=== PATIENT | male | born 1940 | race African-American/Black ===

== ENCOUNTER → 2016-12-14 | Outpatient (CLI) | payer MEDICARE, OTHER ==
[2016-12-14 09:42] LABS: Basophils # (auto) 0 uL; Basophils % (auto) 0.1 % (0.0-2.0); CONDITION Y; DEFINITIVE SEE PRINTOUT; Eosinophils # (auto) 0.1 uL; Eosinophils % (auto) 1.2 % (0.0-7.0); Hematocrit 39.7 % (41.0-53.0); Hemoglobin 12.5 g/dL (13.5-17.5); Lymphocytes # (auto) 2.2 uL; Lymphocytes % (auto) 38.6 % (10.0-50.0); Mean Corpuscular Hemoglobin 23.6 pg (28.0-32.0); Mean Corpuscular Hgb Conc. 31.4 g/dL (32.0-36.0); Mean Corpuscular Volume 75.2 fL (80.0-100.0); Mean Platelet Volume 10.1 fL (7.4-10.4); Monocytes # (auto) 0.4 uL; Monocytes % (auto) 6.7 % (0.0-12.0); Neutrophils # (auto) 3.1 uL; Neutrophils % (auto) 53.4 % (37.0-80.0); Platelet Count (auto) 178 10^3/uL (140-450); Red Cell Distribution Width 15.7 % (11.6-16.0); White Blood Cell 5.8 10^3/uL (4.4-10.8)
[2016-12-14 09:58] LABS: Albumin 3.7 g/dL (3.4-5.0); Bilirubin, Total 0.7 mg/dL (0.2-1.0); Calcium 9.3 mg/dL (8.5-10.1); Potassium 4.4 mmol/L (3.5-5.1); Total Protein 7.7 g/dL (6.4-8.2)
== END | disposition home or self-care (01) ==
LOC: LAB 09:21
PROVIDERS: ATTEND Internal Medicine
DX: K21.9 Gastro-esophageal reflux disease without esophagitis (principal); G62.9 Polyneuropathy, unspecified; I10 Essential (primary) hypertension; N40.0 Benign prostatic hyperplasia without lower urinary tract symptoms
CPT/HCPCS: 36415; 80053; 80061; 82607; 84153; 84439; 84443; 85025

== ENCOUNTER 2018-01-29 00:21 | Inpatient (IN) | payer OTHER ==
[~2018-01-29] VITALS: Ht 177.8 cm; Wt 66.7 kg
[2018-01-29] VITALS (7 sets, daily range): BP systolic 115–147; BP diastolic 88–114
[2018-01-29] MEDS ORDERED: NITROGLYCERIN 0.4 MG SL TAB SL PRN (01:15)
[2018-01-29] MEDS ORDERED: MORPHINE SULF INJ 2 MG/ML SYRINGE 1ML IV PRN ×2 (01:15)
[2018-01-29] MEDS ORDERED: TEMAZEPAM 15 MG CAP PO PRN (01:15)
[2018-01-29] MEDS ORDERED: ACETAMINOPHEN 500 MG TAB PO PRN (01:15)
[2018-01-29] MEDS ORDERED: ONDANSETRON HCL 4 MG/2 ML VIAL IV PRN (01:15)
[2018-01-29] MEDS ORDERED: HYDROcodone-ACET 5/325MG TAB PO PRN (01:15)
[2018-01-29] MEDS ORDERED: BENA10TA9 PO (03:40)
[2018-01-29] MEDS ORDERED: ATEN50TA PO (03:42)
[2018-01-29] MEDS ORDERED: CLON0.1T PO (03:42)
[2018-01-29] MEDS ORDERED: ASPI325T4 PO (03:42)
[2018-01-29] MEDS ORDERED: ENOXAPARIN SOD 60 MG/0.6 ML SYRINGE SC SCH (06:00)
[2018-01-29] MEDS: ENOXAPARIN SOD 60 MG/0.6 ML SYRINGE SC SCH ×2 (06:47→22:14)
[2018-01-29 08:03] LABS: Basophils # (auto) 0 uL; Eosinophils # (auto) 0 uL; Hemoglobin 10.9 g/dL (13.5-17.5); Mean Corpuscular Hemoglobin 22.7 pg (28.0-32.0); Platelet Count (auto) 131 10^3/uL (140-450); Red Blood Cells 4.81 10^6/uL (4.5-5.90)
[2018-01-29 08:06] LABS: Basophils % (auto) 0.6 % (0.0-2.0); Hematocrit 35.4 % (41.0-53.0); Lymphocytes # (auto) 1.9 uL; Mean Corpuscular Hgb Conc. 30.9 g/dL (32.0-36.0); Mean Corpuscular Volume 73.5 fL (80.0-100.0); Monocytes # (auto) 0.4 uL; Monocytes % (auto) 9.1 % (0.0-12.0); Neutrophils # (auto) 2.1 uL; Neutrophils % (auto) 47.3 % (37.0-80.0); Nucleated Red Blood Cells % 0.4 %; Red Cell Distribution Width 15.4 % (11.8-14.3); White Blood Cell 4.5 10^3/uL (4.4-10.8)
[2018-01-29 08:20] LABS: Albumin 3.1 g/dL (3.4-5.0); Calcium 8.4 mg/dL (8.5-10.1); Potassium 3.5 mmol/L (3.5-5.1)
[2018-01-29 08:21] LABS: Cholesterol 146 mg/dL (< 200); HDL Cholesterol 44 mg/dL (40-59); LDL Cholesterol 95 mg/dL (< 100); Triglycerides 55 mg/dL (< 150)
[2018-01-29 08:23] LABS: BUN/Creatinine Ratio 13.3
[2018-01-29 08:43] LABS: Bilirubin, Total 0.9 mg/dL (0.2-1.0); Total Protein 6.4 g/dL (6.4-8.2)
[2018-01-29 08:47] LABS: INR 1.04 (0.9-1.15); Partial Thromboplastin Time 31.9 sec (23.78-33.04); Prothrombin Time 11.1 sec (9.27-12.13)
[2018-01-29] MEDS: FUROSEMIDE 40 MG/4 ML VIAL IV SCH (10:38)
[2018-01-29] MEDS: METOPROLOL TARTRATE 25 MG TAB PO SCH ×2 (10:39→22:17)
[2018-01-29] MEDS: ASPirin-EC 81 mg tab PO SCH (10:39)
[2018-01-29] MEDS ORDERED: LISINOPRIL 20 MG TAB PO ONE (11:45)
[2018-01-29] MEDS ORDERED: POTASSIUM CHL 20 Meq TABLET PO ONE (12:30)
[2018-01-29] MEDS: ATORVASTATIN 20 MG TAB PO SCH (22:14)
[2018-01-30 05:00] VITALS: BP 150/108
[2018-01-30 05:38] LABS: Albumin 3.4 g/dL (3.4-5.0); BUN/Creatinine Ratio 15.1; Calcium 8.9 mg/dL (8.5-10.1); Potassium 4.2 mmol/L (3.5-5.1)
[2018-01-30 05:41] LABS: Bilirubin, Total 0.9 mg/dL (0.2-1.0); Total Protein 6.9 g/dL (6.4-8.2)
[2018-01-30 07:55] VITALS: BP 149/99
[2018-01-30 08:55] VITALS: BP 149/99
[2018-01-30] MEDS: POTASSIUM CHL 20 Meq TABLET PO SCH (09:47)
[2018-01-30] MEDS: ASPirin-EC 81 mg tab PO SCH (09:47)
[2018-01-30] MEDS: FUROSEMIDE 40 MG/4 ML VIAL IV SCH (09:47)
[2018-01-30] MEDS: METOPROLOL TARTRATE 25 MG TAB PO SCH ×2 (09:48→22:49)
[2018-01-30] MEDS: ENOXAPARIN SOD 60 MG/0.6 ML SYRINGE SC SCH (09:48)
[2018-01-30] MEDS ORDERED: LISINOPRIL 20 MG TAB PO SCH (10:00)
[2018-01-30 12:43] VITALS: BP 153/118
[2018-01-30] MEDS ORDERED: ENOXAPARIN SOD 60 MG/0.6 ML SYRINGE SC ONE (14:30)
[2018-01-30] MEDS: hydrALAZINE HCL 25 MG TAB PO SCH ×2 (14:41→22:48)
[2018-01-30 17:00] VITALS: BP 146/109
[2018-01-30] MEDS ORDERED: ACETAMINOPHEN 325 MG TAB PO PRN (17:45)
[2018-01-30 22:00] VITALS: BP 129/94
[2018-01-30] MEDS: ATORVASTATIN 20 MG TAB PO SCH (22:49)
[2018-01-31 04:49] VITALS: BP 115/75
[2018-01-31] MEDS: hydrALAZINE HCL 25 MG TAB PO SCH ×3 (06:31→22:08)
[2018-01-31 08:00] VITALS: BP 118/77
[2018-01-31] MEDS: ASPirin-EC 81 mg tab PO SCH (10:00)
[2018-01-31] MEDS ORDERED: LIDOCAINE 2% (LOCAL ANESTH.) PF 5ml SDV ONE (10:03)
[2018-01-31] MEDS ORDERED: IODIXANOL 320MG/ML 100ML BTL IV ONE (10:04)
[2018-01-31] MEDS ORDERED: VERAPAMIL 2.5MG/ML INJ 2ML VIAL IV ONE (10:11)
[2018-01-31] MEDS ORDERED: ANGIOMAX 250 MG VIAL IV ONE (10:11)
[2018-01-31] MEDS ORDERED: SODIUM CHL 0.9% 0 ML ONE (10:12)
[2018-01-31] MEDS ORDERED: fentaNYL CITRATE 100 MCG/2 ML VL ONE (10:12)
[2018-01-31] MEDS ORDERED: MIDAZOLAM HCL 1MG/1ML-2 ML VIAL ONE (10:12)
[2018-01-31] MEDS ORDERED: HEPARIN SODIUM (PORCINE) 5000 UNITS/ML 1ML VIAL ONE (10:32)
[2018-01-31 12:00] VITALS: BP 149/102
[2018-01-31] MEDS: FUROSEMIDE 40 MG/4 ML VIAL IV SCH (12:11)
[2018-01-31] MEDS: POTASSIUM CHL 20 Meq TABLET PO SCH (12:13)
[2018-01-31] MEDS: METOPROLOL TARTRATE 25 MG TAB PO SCH ×2 (12:13→22:07)
[2018-01-31 16:00] VITALS: BP 127/92
[2018-01-31 22:00] VITALS: BP 114/81
[2018-01-31] MEDS: ATORVASTATIN 20 MG TAB PO SCH (22:07)
[2018-02-01 05:00] VITALS: BP 117/84
[2018-02-01] MEDS: hydrALAZINE HCL 25 MG TAB PO SCH ×3 (05:50→22:00)
[2018-02-01 08:30] VITALS: BP 130/78
[2018-02-01] MEDS: ASPirin-EC 81 mg tab PO SCH (09:05)
[2018-02-01] MEDS: FUROSEMIDE 40 MG/4 ML VIAL IV SCH (09:05)
[2018-02-01] MEDS: POTASSIUM CHL 20 Meq TABLET PO SCH (09:05)
[2018-02-01] MEDS: METOPROLOL TARTRATE 25 MG TAB PO SCH ×2 (09:06→22:00)
[2018-02-01] MEDS ORDERED: LORazepam 2MG/ML-1ML VIAL IV ONE (11:15)
[2018-02-01] MEDS ORDERED: LORazepam 2MG/ML-1ML VIAL ONE (11:32)
[2018-02-01 13:00] VITALS: BP 98/71
[2018-02-01 16:55] VITALS: BP 102/66
[2018-02-01 22:00] VITALS: BP 119/82
[2018-02-01] MEDS: ATORVASTATIN 20 MG TAB PO SCH (22:00)
[2018-02-02 05:21] VITALS: BP 118/84
[2018-02-02] MEDS: hydrALAZINE HCL 25 MG TAB PO SCH (06:12)
[2018-02-02 08:24] VITALS: BP 119/83
[2018-02-02] MEDS: POTASSIUM CHL 20 Meq TABLET PO SCH (11:12)
[2018-02-02] MEDS: ASPirin-EC 81 mg tab PO SCH (11:12)
[2018-02-02] MEDS: FUROSEMIDE 40 MG/4 ML VIAL IV SCH (11:13)
[2018-02-02] MEDS: METOPROLOL TARTRATE 25 MG TAB PO SCH (11:13)
== END 2018-02-02 14:52 | disposition home or self-care (01) | DRG 280 ==
LOC: CENTRAL 00:21 → TELE-CENTR 10:19
PROVIDERS: ADMIT Nurse Practitioner Family; ATTEND Family Medicine
PROC: 4A023N7 Measurement of Cardiac Sampling and Pressure, Left Heart, Percutaneous Approach (ICD-10-PCS; principal; 2018-01-31)
PROC: B2111ZZ Fluoroscopy of Multiple Coronary Arteries using Low Osmolar Contrast (ICD-10-PCS; 2018-01-31)
DX: I21.4 Non-ST elevation (NSTEMI) myocardial infarction (principal); I63.9 Cerebral infarction, unspecified; I50.33 Acute on chronic diastolic (congestive) heart failure; F17.200 Nicotine dependence, unspecified, uncomplicated; I11.0 Hypertensive heart disease with heart failure; I44.7 Left bundle-branch block, unspecified; I25.5 Ischemic cardiomyopathy; I25.10 Atherosclerotic heart disease of native coronary artery without angina pectoris; Z79.82 Long term (current) use of aspirin; Z79.899 Other long term (current) drug therapy; Z86.73 Personal history of transient ischemic attack (TIA), and cerebral infarction without residual deficits; Z91.19 Patient's noncompliance with other medical treatment and regimen; Z71.6 Tobacco abuse counseling
CPT/HCPCS: 36415; 70450; 70551; 71045; 80053; 80061; 83880; 84484; 85025; 85610; 85730; 87081; 93306; 93458; 93886; 99152; A6257; J2001; J2250; Q9967

== ENCOUNTER 2018-02-08 15:30 | Inpatient (IN) | payer OTHER ==
[~2018-02-08] VITALS: Ht 177.8 cm; Wt 64.1 kg
[~2018-02-08 15:30] MED LIST: ASPI325T4 PO; ATEN50TA PO; BENA10TA9 PO; CLON0.1T PO
[2018-02-08] MEDS ORDERED: SODIUM CHLORIDE 0.9% 1,000 ML IV ONE ×2 (15:51→16:48)
[2018-02-08 17:01] LABS: INR 0.99 (0.9-1.15); Partial Thromboplastin Time 25.3 sec (23.78-33.04); Prothrombin Time 10.6 sec (9.27-12.13)
[2018-02-08 17:13] LABS: Basophils # (auto) 0 uL; Eosinophils # (auto) 0 uL; Lymphocytes # (auto) 2.2 uL
[2018-02-08 17:16] LABS: Monocytes # (auto) 0.6 uL
[2018-02-08 17:17] LABS: Eosinophils % (auto) 0.5 % (0.0-7.0); Lymphocytes % (auto) 31.1 % (10.0-50.0); Monocytes % (auto) 6.9 % (0.0-12.0); Neutrophils % (auto) 61.3 % (37.0-80.0); White Blood Cell 7.1 10^3/uL (4.4-10.8)
[2018-02-08 17:18] LABS: Basophils % (auto) 0.2 % (0.0-2.0)
[2018-02-08 17:19] LABS: Neutrophils # (auto) 4.3 uL; Nucleated Red Blood Cells % 0.2 %
[2018-02-08 17:20] LABS: Hematocrit 39.7 % (41.0-53.0); Hemoglobin 12.5 g/dL (13.5-17.5); Mean Corpuscular Hemoglobin 23.1 pg (28.0-32.0); Mean Corpuscular Hgb Conc. 31.5 g/dL (32.0-36.0); Mean Corpuscular Volume 73.5 fL (80.0-100.0); Platelet Count (auto) 207 10^3/uL (140-450); Red Cell Distribution Width 15.5 % (11.8-14.3)
[2018-02-08 17:28] LABS: Albumin 3.3 g/dL (3.4-5.0); BUN/Creatinine Ratio 24.1; Calcium 8.6 mg/dL (8.5-10.1); Magnesium 2.7 mg/dL (1.6-2.6); Potassium 3.9 mmol/L (3.5-5.1); Total Protein 7.9 g/dL (6.4-8.2)
[2018-02-08] MEDS ORDERED: TEMAZEPAM 15 MG CAP PO PRN (19:45)
[2018-02-08] MEDS ORDERED: NITROGLYCERIN 0.4 MG SL TAB SL PRN (19:45)
[2018-02-08] MEDS ORDERED: ENOXAPARIN SOD 60 MG/0.6 ML SYRINGE SC ONE (19:45)
[2018-02-08] MEDS ORDERED: ONDANSETRON HCL 4 MG/2 ML VIAL IV PRN (19:45)
[2018-02-08] MEDS ORDERED: ACETAMINOPHEN 325 MG TAB PO PRN (19:45)
[2018-02-08] MEDS ORDERED: hydrALAZINE HCL 10 MG TAB PO ONE (19:45)
[2018-02-08] MEDS ORDERED: MORPHINE SULF INJ 2 MG/ML SYRINGE 1ML IV PRN (19:45)
[2018-02-08] MEDS ORDERED: HYDROcodone-ACET 5/325MG TAB PO PRN (19:45)
[2018-02-08] MEDS ORDERED: FUROSEMIDE 20 MG/2 ML VIAL IV ONE (19:45)
[2018-02-09 01:51] LABS: Urine Bacteria FEW /hpf (None Seen); Urine Blood Negative /uL (Negative); Urine Specific Gravity 1.008 (1.001-1.035); Urine WBC 88 /hpf (0 - 3)
[2018-02-09 04:16] LABS: Basophils # (auto) 0 uL; Basophils % (auto) 0.4 % (0.0-2.0); Eosinophils # (auto) 0.1 uL; Eosinophils % (auto) 1.2 % (0.0-7.0); Hematocrit 32.5 % (41.0-53.0); Hemoglobin 10.6 g/dL (13.5-17.5); Lymphocytes # (auto) 2.4 uL; Lymphocytes % (auto) 32.8 % (10.0-50.0); Mean Corpuscular Hemoglobin 23.7 pg (28.0-32.0); Mean Corpuscular Hgb Conc. 32.4 g/dL (32.0-36.0); Mean Corpuscular Volume 73.1 fL (80.0-100.0); Monocytes # (auto) 0.6 uL; Neutrophils # (auto) 4.2 uL; Neutrophils % (auto) 57.6 % (37.0-80.0); Nucleated Red Blood Cells % 0.1 %; Platelet Count (auto) 216 10^3/uL (140-450); Red Blood Cells 4.45 10^6/uL (4.5-5.90); Red Cell Distribution Width 15.5 % (11.8-14.3); White Blood Cell 7.3 10^3/uL (4.4-10.8)
[2018-02-09 04:52] LABS: Albumin 2.9 g/dL (3.4-5.0); Calcium 8.2 mg/dL (8.5-10.1); Potassium 4.2 mmol/L (3.5-5.1)
[2018-02-09 04:54] LABS: BUN/Creatinine Ratio 25.6; Bilirubin, Total 0.7 mg/dL (0.2-1.0); Total Protein 6.1 g/dL (6.4-8.2)
[2018-02-09] MEDS: BENAZEPRIL HCL 10 MG TAB PO SCH (10:00)
[2018-02-09] MEDS: ASPirin 81 mg TAB PO SCH (10:27)
[2018-02-09] MEDS: PANTOPRAZOLE 40 MG TAB PO SCH (10:27)
[2018-02-09] MEDS: ENOXAPARIN SOD 30 MG/0.3 ML SYRINGE SC SCH (10:27)
[2018-02-09 12:19] LABS: Urine Bacteria FEW /hpf (None Seen); Urine Blood Negative /uL (Negative); Urine Specific Gravity 1.011 (1.001-1.035); Urine WBC 39 /hpf (0 - 3)
[2018-02-09 12:30] LABS: Alcohol, Urine < 3.0 mg/dL (0-5); Amphetamine Screen, Urine NEGATIVE (NEGATIVE); Barbiturate Scree,Urine NEGATIVE (NEGATIVE); Benzodiazephine Screen, Urine NEGATIVE (NEGATIVE); Cannabinoid Screen, Urine NEGATIVE (NEGATIVE); Cocaine Screen, Urine NEGATIVE (NEGATIVE); Opiate Scree,Urine NEGATIVE (NEGATIVE); Phencyclidine Screen, Urine NEGATIVE (NEGATIVE)
[2018-02-09] MEDS ORDERED: cefTRIAXone 1GM/10ml IVPUSH 10 ML IV ONE (13:45)
[2018-02-10] MEDS: cefTRIAXone 1GM/10ml IVPUSH 10 ML IV SCH (09:41)
[2018-02-10] MEDS: ASPirin 81 mg TAB PO SCH (09:41)
[2018-02-10] MEDS: ENOXAPARIN SOD 30 MG/0.3 ML SYRINGE SC SCH (09:42)
[2018-02-10] MEDS: PANTOPRAZOLE 40 MG TAB PO SCH (09:42)
[2018-02-10] MEDS: BENAZEPRIL HCL 10 MG TAB PO SCH ×2 (09:47→22:12)
[2018-02-10] MEDS ORDERED: LIDOCAINE 2% (LOCAL ANESTH.) PF 5ml SDV ONE (12:57)
[2018-02-10] MEDS ORDERED: IOHEXOL 350 MG/ML 100ML IJ ONE (12:57)
[2018-02-10] MEDS ORDERED: VANCOMYCIN HCL 1000 MG VL ONE (13:15)
[2018-02-10] MEDS ORDERED: ceFAZolin 1GM/50ML 50 ML IV ONE (13:15)
[2018-02-10] MEDS ORDERED: VANCOMYCIN 1GM/250ML 250 ML IV ONE (13:15)
[2018-02-10] MEDS: fentaNYL CITRATE 100 MCG/2 ML VL ONE (13:57)
[2018-02-10] MEDS: MIDAZOLAM HCL 1MG/1ML-2 ML VIAL ONE (13:57)
[2018-02-10] MEDS ORDERED: FUROSEMIDE 20 MG/2 ML VIAL ONE ×2 (15:12→15:17)
[2018-02-10] MEDS ORDERED: LIDOCAINE W/ EPINEPHRINE 2% INJ 20ML VIAL ONE (15:20)
[2018-02-10] MEDS ORDERED: ACETAMINOPHEN 325 MG TAB PO PRN (16:00)
[2018-02-10] MEDS ORDERED: HYDROcodone-ACET 5/325MG TAB PO PRN (16:00)
[2018-02-10] MEDS ORDERED: BENAZEPRIL HCL 10 MG TAB ONE (16:29)
[2018-02-10] MEDS ORDERED: BENAZEPRIL HCL 10 MG TAB PO ONE (16:30)
[2018-02-10 18:15] VITALS: BP 160/102
[2018-02-10 22:00] VITALS: BP 130/90
[2018-02-11] MEDS ORDERED: VANCOMYCIN 1GM/250ML 250 ML IV SCH (04:00)
[2018-02-11 05:00] VITALS: BP 129/61
[2018-02-11 09:00] VITALS: BP 132/86
[2018-02-11] MEDS: PANTOPRAZOLE 40 MG TAB PO SCH (09:37)
[2018-02-11] MEDS: cefTRIAXone 1GM/10ml IVPUSH 10 ML IV SCH (09:37)
[2018-02-11] MEDS: BENAZEPRIL HCL 10 MG TAB PO SCH ×2 (09:38→21:24)
[2018-02-11] MEDS: ASPirin 81 mg TAB PO SCH (10:00)
[2018-02-11 13:00] VITALS: BP 124/82
[2018-02-11 16:57] VITALS: BP 99/60
[2018-02-11 21:30] VITALS: BP 99/73
[2018-02-12 05:40] VITALS: BP 109/70
[2018-02-12 09:44] VITALS: BP 107/74
[2018-02-12] MEDS: cefTRIAXone 1GM/10ml IVPUSH 10 ML IV SCH (09:45)
[2018-02-12] MEDS: PANTOPRAZOLE 40 MG TAB PO SCH (09:45)
[2018-02-12] MEDS: BENAZEPRIL HCL 10 MG TAB PO SCH ×2 (10:00→21:40)
[2018-02-12] MEDS: ASPirin 81 mg TAB PO SCH (10:00)
[2018-02-12 13:00] VITALS: BP 91/68
[2018-02-12 17:27] VITALS: BP 96/68
[2018-02-12 22:15] VITALS: BP 97/68
[2018-02-13 05:39] VITALS: BP 114/75
[2018-02-13 09:00] VITALS: BP 129/82
[2018-02-13] MEDS: PANTOPRAZOLE 40 MG TAB PO SCH (09:34)
[2018-02-13] MEDS: cefTRIAXone 1GM/10ml IVPUSH 10 ML IV SCH (09:34)
[2018-02-13] MEDS: BENAZEPRIL HCL 10 MG TAB PO SCH (09:35)
[2018-02-13] MEDS: ASPirin 81 mg TAB PO SCH (09:40)
[2018-02-13 13:00] VITALS: BP 122/86
[2018-02-13 13:25] VITALS: BP 122/86
== END 2018-02-13 16:15 | disposition home or self-care (01) | DRG 226 ==
LOC: ER 15:35 → OVERFLOW 15:36 → TELE-CENTR 20:38 → TELE-WESTW 02-10 18:07
PROVIDERS: ADMIT Nurse Practitioner; ATTEND Family Medicine
PROC: 0JH609Z Insertion of Cardiac Resynchronization Defibrillator Pulse Generator into Chest Subcutaneous Tissue and Fascia, Open Approach (ICD-10-PCS; principal; 2018-02-11)
PROC: 02HL3KZ Insertion of Defibrillator Lead into Left Ventricle, Percutaneous Approach (ICD-10-PCS; 2018-02-11)
PROC: 02HK3KZ Insertion of Defibrillator Lead into Right Ventricle, Percutaneous Approach (ICD-10-PCS; 2018-02-11)
PROC: 02H63KZ Insertion of Defibrillator Lead into Right Atrium, Percutaneous Approach (ICD-10-PCS; 2018-02-11)
DX: I49.5 Sick sinus syndrome (principal); I21.4 Non-ST elevation (NSTEMI) myocardial infarction; I50.23 Acute on chronic systolic (congestive) heart failure; I13.0 Hypertensive heart and chronic kidney disease with heart failure and stage 1 through stage 4 chronic kidney disease, or unspecified chronic kidney disease; E44.1 Mild protein-calorie malnutrition; N39.0 Urinary tract infection, site not specified; I42.0 Dilated cardiomyopathy; F17.210 Nicotine dependence, cigarettes, uncomplicated; D50.9 Iron deficiency anemia, unspecified; I44.7 Left bundle-branch block, unspecified; I08.0 Rheumatic disorders of both mitral and aortic valves; N18.3 Chronic kidney disease, stage 3 (moderate); I25.10 Atherosclerotic heart disease of native coronary artery without angina pectoris; I73.9 Peripheral vascular disease, unspecified; Z86.73 Personal history of transient ischemic attack (TIA), and cerebral infarction without residual deficits; Z68.20 Body mass index [BMI] 20.0-20.9, adult; Z79.82 Long term (current) use of aspirin; Z79.899 Other long term (current) drug therapy
CPT/HCPCS: 36415; 71045; 71046; 80053; 80307; 81001; 83735; 83880; 84443; 84484; 85025; 85610; 85730; 93005; 94761; 96361; 96372; 96374; 99152; 99153; J0690; J0696; J2001; J2250

== ENCOUNTER → 2018-03-27 | Outpatient (CLI) | payer OTHER | END | disposition home or self-care (01) | LOC: Rad HDHVI 12:52 | PROVIDERS: ATTEND Internal Medicine Cardiovascular Disease | DX: I11.0 Hypertensive heart disease with heart failure (principal); I42.0 Dilated cardiomyopathy; I50.23 Acute on chronic systolic (congestive) heart failure | CPT/HCPCS: 83880; 93306 ==

== ENCOUNTER 2018-04-13 17:10 | Emergency (ER) | payer OTHER ==
[~2018-04-13] VITALS: Ht 177.8 cm; Wt 72.1 kg
[2018-04-13] MEDS ORDERED: NIFEdipine 10 MG CAP PO ONE (20:45)
[2018-04-13 21:54] LABS: Basophils # (auto) 0 uL; Eosinophils # (auto) 0.2 uL; Lymphocytes # (auto) 2.4 uL; Lymphocytes % (auto) 39.7 % (10.0-50.0); Monocytes # (auto) 0.4 uL; Monocytes % (auto) 7.1 % (0.0-12.0); Neutrophils # (auto) 2.9 uL; Platelet Count (auto) 125 10^3/uL (140-450); White Blood Cell 5.9 10^3/uL (4.4-10.8)
[2018-04-13 21:56] LABS: Basophils % (auto) 0.3 % (0.0-2.0); Eosinophils % (auto) 3.4 % (0.0-7.0); Hematocrit 38.7 % (41.0-53.0); Hemoglobin 12.3 g/dL (13.5-17.5); Mean Corpuscular Hgb Conc. 31.8 g/dL (32.0-36.0); Mean Corpuscular Volume 75.6 fL (80.0-100.0); Neutrophils % (auto) 49.5 % (37.0-80.0); Nucleated Red Blood Cells % 0.2 %; Red Blood Cells 5.12 10^6/uL (4.5-5.90); Red Cell Distribution Width 15.5 % (11.8-14.3)
[2018-04-13 22:05] LABS: Albumin 3.9 g/dL (3.4-5.0); Calcium 8.5 mg/dL (8.5-10.1); Potassium 3.7 mmol/L (3.5-5.1)
[2018-04-13 22:09] LABS: BUN/Creatinine Ratio 13.4
[2018-04-13 22:13] LABS: Bilirubin, Total 0.8 mg/dL (0.2-1.0); Total Protein 7.7 g/dL (6.4-8.2)
[2018-04-13 22:32] VITALS: BP 117/83
== END 2018-04-13 22:43 | disposition home or self-care (01) ==
LOC: ER 17:13
DX: I11.0 Hypertensive heart disease with heart failure (principal); F17.210 Nicotine dependence, cigarettes, uncomplicated; I50.9 Heart failure, unspecified; Z86.73 Personal history of transient ischemic attack (TIA), and cerebral infarction without residual deficits; Z96.89 Presence of other specified functional implants; Z79.82 Long term (current) use of aspirin; Z79.899 Other long term (current) drug therapy
CPT/HCPCS: 36415; 71045; 80053; 84484; 85025; 93005

== ENCOUNTER → 2018-08-21 | Day surgery (SDC) | payer OTHER ==
[2018-08-17 14:54] LABS: Basophils # (auto) 0 uL; Eosinophils # (auto) 0.1 uL; Monocytes # (auto) 0.4 uL
[2018-08-17 14:56] LABS: Basophils % (auto) 0.2 % (0.0-2.0); Eosinophils % (auto) 1.3 % (0.0-7.0); Hematocrit 37.6 % (41.0-53.0); Hemoglobin 11.7 g/dL (13.5-17.5); Lymphocytes # (auto) 2.4 uL; Lymphocytes % (auto) 40.6 % (10.0-50.0); Mean Corpuscular Hemoglobin 23.6 pg (28.0-32.0); Mean Corpuscular Hgb Conc. 31.2 g/dL (32.0-36.0); Mean Corpuscular Volume 75.6 fL (80.0-100.0); Monocytes % (auto) 7.3 % (0.0-12.0); Neutrophils % (auto) 50.6 % (37.0-80.0); Platelet Count (auto) 125 10^3/uL (140-450); Red Blood Cells 4.98 10^6/uL (4.5-5.90); Red Cell Distribution Width 15.4 % (11.8-14.3); White Blood Cell 5.9 10^3/uL (4.4-10.8)
[2018-08-17 15:07] LABS: INR 0.98 (0.9-1.15); Partial Thromboplastin Time 26.1 sec (23.78-33.04); Prothrombin Time 10.5 sec (9.27-12.13)
[~2018-08-21] VITALS: Ht 180.3 cm; Wt 70.3 kg
[~2018-08-21] MED LIST changes: -ASPI325T4 PO; +ASPI81TA27 PO; +ATOR20TA50 PO; +FURO40TA4 PO; +LIDOCAINE VISCOUS 2% 15ML UD ONE; +LISI40TA PO; +MIDAZOLAM HCL 5 MG/ML-1ML VIAL ONE; +NIF30XLT PO; +POTA20TA53 PO; +SODIUM CHLORIDE LOCK 10 ML ONE; +diphenhdrAMINE HCL 50 MG/1 ML VL ONE; +fentaNYL CITRATE 100 MCG/2 ML VL ONE; +hydrALAZINE HCL 20 MG/ML VL ONE
== END | disposition home or self-care (01) ==
LOC: SUR 08:34
PROVIDERS: ATTEND Internal Medicine Gastroenterology
DX: D64.9 Anemia, unspecified (principal); R13.10 Dysphagia, unspecified; Z53.8 Procedure and treatment not carried out for other reasons
CPT/HCPCS: 36415; 85025; 85610; 85730; J0360; J2250

== ENCOUNTER → 2018-10-10 | Outpatient (CLI) | payer OTHER ==
[~2018-10-10] MED LIST changes: -LIDOCAINE VISCOUS 2% 15ML UD ONE; -MIDAZOLAM HCL 5 MG/ML-1ML VIAL ONE; -SODIUM CHLORIDE LOCK 10 ML ONE; -diphenhdrAMINE HCL 50 MG/1 ML VL ONE; -fentaNYL CITRATE 100 MCG/2 ML VL ONE; -hydrALAZINE HCL 20 MG/ML VL ONE
[2018-10-10 12:58] LABS: Basophils # (auto) 0 uL; Eosinophils # (auto) 0.1 uL; Hematocrit 37.5 % (41.0-53.0); Hemoglobin 11.7 g/dL (13.5-17.5); Mean Corpuscular Hgb Conc. 31.2 g/dL (32.0-36.0); Monocytes # (auto) 0.5 uL; Neutrophils # (auto) 2.7 uL
[2018-10-10 13:01] LABS: Basophils % (auto) 0.4 % (0.0-2.0); Eosinophils % (auto) 1.6 % (0.0-7.0); Lymphocytes # (auto) 2.5 uL; Lymphocytes % (auto) 43.2 % (10.0-50.0); Mean Corpuscular Hemoglobin 23.5 pg (28.0-32.0); Mean Corpuscular Volume 75.3 fL (80.0-100.0); Monocytes % (auto) 8.3 % (0.0-12.0); Neutrophils % (auto) 46.5 % (37.0-80.0); Nucleated Red Blood Cells % 0.2 %; Platelet Count (auto) 132 10^3/uL (140-450); Red Blood Cells 4.98 10^6/uL (4.5-5.90); Red Cell Distribution Width 15.2 % (11.8-14.3); White Blood Cell 5.8 10^3/uL (4.4-10.8)
[2018-10-10 13:53] LABS: Prostate Specific Antigen 5.06 ng/mL (0.0-4.0)
[2018-10-10 14:16] LABS: Albumin 3.7 g/dL (3.4-5.0); Calcium 8.6 mg/dL (8.5-10.1); Potassium 4.1 mmol/L (3.5-5.1)
[2018-10-10 14:18] LABS: BUN/Creatinine Ratio 14.8; Bilirubin, Total 0.8 mg/dL (0.2-1.0); Total Protein 7.2 g/dL (6.4-8.2)
== END | disposition home or self-care (01) ==
LOC: LAB 12:00
PROVIDERS: ATTEND Internal Medicine
DX: N40.0 Benign prostatic hyperplasia without lower urinary tract symptoms (principal); D64.9 Anemia, unspecified; I11.0 Hypertensive heart disease with heart failure; I50.9 Heart failure, unspecified
CPT/HCPCS: 36415; 80053; 82607; 83540; 83615; 84153; 84154; 85025

== ENCOUNTER 2019-01-19 16:46 | Inpatient (IN) | payer MEDICARE, OTHER ==
[~2019-01-19] VITALS: Ht 172.7 cm; Wt 74.4 kg
[~2019-01-19 16:46] MED LIST changes: +ASPI-404 PO; -ASPI81TA27 PO; -NIF30XLT PO; +NIFE30TA77 PO; +POTA-220 PO; -POTA20TA53 PO
[2019-01-19 19:31] LABS: Basophils # (auto) 0 uL; Basophils % (auto) 0.5 % (0.0-2.0); Eosinophils # (auto) 0.1 uL; Monocytes # (auto) 0.4 uL; Red Cell Distribution Width 15.8 % (11.8-14.3)
[2019-01-19 19:33] LABS: Eosinophils % (auto) 1.5 % (0.0-7.0); Lymphocytes # (auto) 2.7 uL; Lymphocytes % (auto) 46.3 % (10.0-50.0); Mean Corpuscular Hemoglobin 23.1 pg (28.0-32.0); Mean Corpuscular Hgb Conc. 31.5 g/dL (32.0-36.0); Mean Corpuscular Volume 73.3 fL (80.0-100.0); Neutrophils # (auto) 2.6 uL; Neutrophils % (auto) 44.7 % (37.0-80.0); Nucleated Red Blood Cells % 0.2 %; Platelet Count (auto) 135 10^3/uL (140-450); Red Blood Cells 4.77 10^6/uL (4.5-5.90); White Blood Cell 5.8 10^3/uL (4.4-10.8)
[2019-01-19 19:43] LABS: Albumin 3.8 g/dL (3.4-5.0); BUN/Creatinine Ratio 13.6; Calcium 8.7 mg/dL (8.5-10.1); Magnesium 2.2 mg/dL (1.6-2.6); Potassium 3.7 mmol/L (3.5-5.1)
[2019-01-19 19:44] LABS: INR 1.05 (0.9-1.15); Partial Thromboplastin Time 25.8 sec (23.64-32.05)
[2019-01-19 19:48] LABS: Bilirubin, Total 0.6 mg/dL (0.2-1.0); Total Protein 7.6 g/dL (6.4-8.2)
[2019-01-19] MEDS ORDERED: ACETAMINOPHEN 500 MG TAB PO PRN (20:30)
[2019-01-19] MEDS ORDERED: HYDROcodone-ACET 5/325MG TAB PO PRN (21:00)
[2019-01-19] MEDS ORDERED: TEMAZEPAM 15 MG CAP PO PRN (21:00)
[2019-01-19] MEDS ORDERED: cloNIDine HCL 0.1 MG TAB PO PRN (21:00)
[2019-01-19] MEDS ORDERED: DOCUSATE SOD 100 MG CAP PO PRN (21:00)
[2019-01-19 22:00] VITALS: BP_SYST 122; BP_SYST 163; BP_DIAS 123; BP_DIAS 69
[2019-01-19] MEDS: LISINOPRIL 20 MG TAB PO SCH (22:00)
[2019-01-19] MEDS ORDERED: ATENOLOL 50 MG TAB PO SCH (22:00)
[2019-01-19] MEDS ORDERED: NIFEdipine ER 30 MG TAB PO SCH (22:00)
--- NOTE | 2019-01-19 22:25 | NUR ---
Telemetry admit from ER [facility] JR admitted to Telemetry unit after hand off tool received. Patient oriented to primary RN, unit, room, bed, and unit policies regarding patient care and visiting hours. Patient now on continuous telemetry monitoring, tele box # [id number] and telemetry reading on arrival to unit is V paced 77. Patient placed on bedside oxygen, weighed by bedscale and encouraged to call if they need something. All questions and concerns addressed, patient verbalized understanding. Daughter at bedside.
[2019-01-19] MEDS: ATORVASTATIN 20 MG TAB PO SCH (22:26)
[2019-01-19 23:04] LABS: Urine Bacteria NONE SEEN /hpf (None Seen); Urine Blood Negative /uL (Negative); Urine Mucus FEW (None Seen); Urine Specific Gravity 1.027 (1.001-1.035); Urine Sperm PRESENT /hpf (None Seen); Urine WBC 3 /hpf (0 - 3)
[2019-01-20 04:48] VITALS: BP 162/122
[2019-01-20 05:58] LABS: Basophils # (auto) 0 uL; Eosinophils # (auto) 0.1 uL; Monocytes # (auto) 0.5 uL
[2019-01-20 06:02] LABS: Basophils % (auto) 0.5 % (0.0-2.0); Eosinophils % (auto) 1.6 % (0.0-7.0); Hematocrit 32.7 % (41.0-53.0); Hemoglobin 10.5 g/dL (13.5-17.5); Lymphocytes # (auto) 3.1 uL; Lymphocytes % (auto) 50.8 % (10.0-50.0); Mean Corpuscular Hemoglobin 23.7 pg (28.0-32.0); Mean Corpuscular Hgb Conc. 32.2 g/dL (32.0-36.0); Mean Corpuscular Volume 73.7 fL (80.0-100.0); Monocytes % (auto) 8.4 % (0.0-12.0); Neutrophils # (auto) 2.4 uL; Neutrophils % (auto) 38.7 % (37.0-80.0); Nucleated Red Blood Cells % 0.1 %; Platelet Count (auto) 124 10^3/uL (140-450); Red Blood Cells 4.44 10^6/uL (4.5-5.90); Red Cell Distribution Width 15.3 % (11.8-14.3); White Blood Cell 6.2 10^3/uL (4.4-10.8)
[2019-01-20 06:18] LABS: BUN/Creatinine Ratio 17.2; Calcium 8.6 mg/dL (8.5-10.1); Potassium 3.4 mmol/L (3.5-5.1)
--- NOTE | 2019-01-20 07:30 | NUR ---
Opening Shift Note Assumed care of patient, awake, alert, and oriented x4. No S/S of distress/SOB or pain. IV is in left forearm and is asymptomatic, intact, patent, and saline locked. IV is in left AC and is asymptomatic, intact, patent, and saline locked. Bed is locked and in lowest position, and call light is within reach. Instructed on POC and to call for assist PRN, and patient verbalized understanding. Will continue to monitor for changes Q1hr and PRN.
[2019-01-20 08:00] VITALS: BP 170/132
--- NOTE | 2019-01-20 09:30 | NUR ---
HIGH BP Blood pressure is 170/132 mmHg, heart rate is 69. Administered ordered 1000 BP meds; will reassess in 30 minutes. No distress noted at this time, patient resting quietly in bed lying supine semi-fowlers.
--- NOTE | 2019-01-20 09:45 | NUR ---
BP 161/123 mmHg, and heart rate is 71 bpm. Will reassess in 15 minutes. No distress noted at this time.
[2019-01-20] MEDS ORDERED: LISINOPRIL 20 MG TAB PO SCH (10:00)
[2019-01-20] MEDS: NICOTINE 14 MG/24HR TOPICAL PATCH TD SCH (10:00)
--- NOTE | 2019-01-20 10:00 | NUR ---
BP is 130/99 mmHg.
[2019-01-20] MEDS: LISINOPRIL 20 MG TAB PO SCH (10:45)
[2019-01-20] MEDS: ASPirin-EC 81 mg tab PO SCH (10:46)
[2019-01-20] MEDS: FUROSEMIDE 20 MG TAB PO SCH (10:46)
[2019-01-20] MEDS: ATENOLOL 50 MG TAB PO SCH ×2 (10:46→21:59)
--- NOTE | 2019-01-20 12:00 | NUR ---
Physical Therapy is at bedside.
--- NOTE | 2019-01-20 12:11 | NUR ---
Physical Therapist recommends walker for safe ambulation at home with discharge.
[2019-01-20 13:54] VITALS: BP 164/125
--- NOTE | 2019-01-20 14:01 | NUR ---
BP is 169/120 mmHg. Will administer Clonidine PRN, and reassess in 30 minutes.
--- NOTE | 2019-01-20 14:30 | NUR ---
BP is 135/95 mmHg.
[2019-01-20] MEDS ORDERED: POTASSIUM CHLORIDE 8 MEQ TAB PO ONE (14:45)
--- NOTE | 2019-01-20 14:50 | NUR ---
Dr. Mccormick, Decorator Inspector, signed off on patient; no new orders received.
--- NOTE | 2019-01-20 15:00 | NUR ---
Dr. Mehta, Hospitalist, at bedside. New orders received.
[2019-01-20 17:19] VITALS: BP 146/111
[2019-01-20] MEDS ORDERED: cloNIDine HCL 0.1 MG TAB PO PRN (18:45)
--- NOTE | 2019-01-20 19:30 | NUR ---
Opening Shift Note Assumed care of patient, awake and alert. No S/S of distress/SOB or pain. Patient having his dinner, abl eto consume 75% of dinner tray. Instructed on POC and to call for assist PRN, will continue to monitor for changes Q1hr and PRN.
[2019-01-20] MEDS: ATORVASTATIN 20 MG TAB PO SCH (21:58)
[2019-01-20 22:00] VITALS: BP 137/108
[2019-01-21 05:09] VITALS: BP 134/81
[2019-01-21 07:13] LABS: Basophils # (auto) 0 uL; Basophils % (auto) 0.3 % (0.0-2.0); Eosinophils # (auto) 0.1 uL; Hemoglobin 10.2 g/dL (13.5-17.5); Lymphocytes # (auto) 2.3 uL; Monocytes # (auto) 0.5 uL; Platelet Count (auto) 129 10^3/uL (140-450); White Blood Cell 5.5 10^3/uL (4.4-10.8)
[2019-01-21 07:15] LABS: Eosinophils % (auto) 2.4 % (0.0-7.0); Hematocrit 31.8 % (41.0-53.0); Lymphocytes % (auto) 41.4 % (10.0-50.0); Mean Corpuscular Hemoglobin 23.2 pg (28.0-32.0); Mean Corpuscular Volume 72.4 fL (80.0-100.0); Monocytes % (auto) 9.5 % (0.0-12.0); Neutrophils # (auto) 2.5 uL; Neutrophils % (auto) 46.4 % (37.0-80.0); Nucleated Red Blood Cells % 0.2 %; Red Blood Cells 4.39 10^6/uL (4.5-5.90); Red Cell Distribution Width 15.1 % (11.8-14.3)
--- NOTE | 2019-01-21 07:30 | NUR ---
Opening Shift Note Assumed care of patient, awake, alert, and oriented x4. No S/S of distress/SOB or pain. IV is in left forearm 20 gauge and is asymptomatic, intact, patent, and saline locked. IV is in the left AC 20 gauge and is asymptomatic, intact, patent, and saline locked. Bed is locked and in lowest position and call light is within reach. Instructed on POC and to call for assist PRN, and patient verbalized understanding. Will continue to monitor for changes Q1hr and PRN.
[2019-01-21 07:35] LABS: Calcium 8.7 mg/dL (8.5-10.1); Potassium 4.2 mmol/L (3.5-5.1)
[2019-01-21 07:43] LABS: BUN/Creatinine Ratio 21.2
[2019-01-21 09:00] VITALS: BP 141/99
--- NOTE | 2019-01-21 09:00 | NUR ---
Dr. Mehta, Hospitalist, at bedside. New orders received.
[2019-01-21] MEDS: NICOTINE 14 MG/24HR TOPICAL PATCH TD SCH (09:38)
[2019-01-21] MEDS: ASPirin-EC 81 mg tab PO SCH (09:46)
[2019-01-21] MEDS: FUROSEMIDE 20 MG TAB PO SCH (09:47)
[2019-01-21] MEDS: LISINOPRIL 20 MG TAB PO SCH (09:48)
[2019-01-21] MEDS: ATENOLOL 50 MG TAB PO SCH (09:49)
[2019-01-21] MEDS ORDERED: POTASSIUM CHL 10 Meq TABLET PO SCH (10:00)
[2019-01-21 10:44] VITALS: BP 141/99
== END 2019-01-21 11:30 | disposition home or self-care (01) | DRG 69 ==
LOC: ER 16:48 → TELE 16:49 → TELE-CENTR 22:43
PROVIDERS: ADMIT Nurse Practitioner Family; ATTEND Nurse Practitioner Family
DX: G45.9 Transient cerebral ischemic attack, unspecified (principal); N17.0 Acute kidney failure with tubular necrosis; I13.0 Hypertensive heart and chronic kidney disease with heart failure and stage 1 through stage 4 chronic kidney disease, or unspecified chronic kidney disease; I42.0 Dilated cardiomyopathy; I50.42 Chronic combined systolic (congestive) and diastolic (congestive) heart failure; I69.354 Hemiplegia and hemiparesis following cerebral infarction affecting left non-dominant side; D63.8 Anemia in other chronic diseases classified elsewhere; E78.5 Hyperlipidemia, unspecified; E87.6 Hypokalemia; F17.210 Nicotine dependence, cigarettes, uncomplicated; I25.10 Atherosclerotic heart disease of native coronary artery without angina pectoris; N18.9 Chronic kidney disease, unspecified; Z79.899 Other long term (current) drug therapy; Z80.0 Family history of malignant neoplasm of digestive organs; Z95.0 Presence of cardiac pacemaker; I25.2 Old myocardial infarction
CPT/HCPCS: 36415; 70450; 80048; 80053; 81001; 83735; 83880; 84484; 85025; 85610; 85730; 97163; G0378

== ENCOUNTER → 2019-02-06 | Outpatient (CLI) | payer OTHER ==
[2019-02-06 11:45] LABS: Basophils # (auto) 0 uL; Basophils % (auto) 0.4 % (0.0-2.0); Eosinophils # (auto) 0.1 uL; Eosinophils % (auto) 1.5 % (0.0-7.0); Hemoglobin 10.8 g/dL (13.5-17.5); Lymphocytes # (auto) 2.5 uL; Mean Corpuscular Hemoglobin 22.9 pg (28.0-32.0); Mean Corpuscular Volume 73.8 fL (80.0-100.0); Neutrophils # (auto) 2.7 uL; Neutrophils % (auto) 48.4 % (37.0-80.0); Nucleated Red Blood Cells % 0.1 %; White Blood Cell 5.7 10^3/uL (4.4-10.8)
[2019-02-06 11:48] LABS: Hematocrit 34.8 % (41.0-53.0); Lymphocytes % (auto) 43.7 % (10.0-50.0); Monocytes # (auto) 0.3 uL; Platelet Count (auto) 152 10^3/uL (140-450); Red Blood Cells 4.71 10^6/uL (4.5-5.90); Red Cell Distribution Width 15.7 % (11.8-14.3)
[2019-02-06 12:06] LABS: Urine Bacteria NONE SEEN /hpf (None Seen); Urine Blood Negative /uL (Negative); Urine Hyaline Cast FEW /lpf (0 - 2); Urine Mucus FEW (None Seen); Urine Specific Gravity 1.025 (1.001-1.035); Urine WBC 1 /hpf (0 - 3)
[2019-02-06 12:17] LABS: Albumin 3.9 g/dL (3.4-5.0); BUN/Creatinine Ratio 14.5; Calcium 8.8 mg/dL (8.5-10.1); Magnesium 2.2 mg/dL (1.6-2.6)
[2019-02-06 12:22] LABS: Bilirubin, Total 0.8 mg/dL (0.2-1.0); Free T4 (Free Thyroxine) 1.22 ng/dL (0.89-1.76); Total Protein 7.4 g/dL (6.4-8.2)
[2019-02-06 13:07] LABS: Prostate Specific Antigen 5.9 ng/mL (0.0-4.0)
== END | disposition home or self-care (01) ==
LOC: LAB 11:13
PROVIDERS: ATTEND Internal Medicine
DX: I63.9 Cerebral infarction, unspecified (principal); I11.0 Hypertensive heart disease with heart failure; I50.9 Heart failure, unspecified; Z86.73 Personal history of transient ischemic attack (TIA), and cerebral infarction without residual deficits
CPT/HCPCS: 36415; 80053; 80061; 81001; 83735; 84153; 84154; 84439; 84443; 85025

== ENCOUNTER → 2019-03-29 | Outpatient (CLI) | payer OTHER | END | disposition home or self-care (01) | LOC: Rad HDHVI 11:07 | PROVIDERS: ATTEND Internal Medicine Cardiovascular Disease | DX: I34.0 Nonrheumatic mitral (valve) insufficiency (principal); I71.4 Abdominal aortic aneurysm, without rupture; I11.0 Hypertensive heart disease with heart failure; I50.22 Chronic systolic (congestive) heart failure | CPT/HCPCS: 93306 ==

== ENCOUNTER → 2019-05-03 | Outpatient (CLI) | payer OTHER ==
[2019-05-03 12:37] LABS: Basophils # (auto) 0 uL; Eosinophils # (auto) 0.1 uL; Hemoglobin 12.1 g/dL (13.5-17.5); Lymphocytes # (auto) 2.6 uL; Mean Corpuscular Hemoglobin 23.4 pg (28.0-32.0); Monocytes # (auto) 0.4 uL; Nucleated Red Blood Cells % 0.2 %
[2019-05-03 12:41] LABS: Basophils % (auto) 0.4 % (0.0-2.0); Eosinophils % (auto) 1.4 % (0.0-7.0); Hematocrit 38.2 % (41.0-53.0); Lymphocytes % (auto) 40.9 % (10.0-50.0); Mean Corpuscular Hgb Conc. 31.6 g/dL (32.0-36.0); Mean Corpuscular Volume 74.3 fL (80.0-100.0); Monocytes % (auto) 6.5 % (0.0-12.0); Neutrophils # (auto) 3.2 uL; Neutrophils % (auto) 50.8 % (37.0-80.0); Platelet Count (auto) 168 10^3/uL (140-450); Red Blood Cells 5.14 10^6/uL (4.5-5.90); Red Cell Distribution Width 15.3 % (11.8-14.3); White Blood Cell 6.4 10^3/uL (4.4-10.8)
[2019-05-03 13:45] LABS: Potassium 4.2 mmol/L (3.5-5.1)
[2019-05-03 13:56] LABS: Albumin 4.1 g/dL (3.4-5.0); BUN/Creatinine Ratio 16.4; Bilirubin, Total 0.7 mg/dL (0.2-1.0); Calcium 9.3 mg/dL (8.5-10.1); Total Protein 7.8 g/dL (6.4-8.2)
== END | disposition home or self-care (01) ==
LOC: LAB 11:20
PROVIDERS: ATTEND Internal Medicine
DX: D64.9 Anemia, unspecified (principal); I10 Essential (primary) hypertension
CPT/HCPCS: 36415; 80053; 82607; 83540; 85025; 85652

== ENCOUNTER → 2019-12-04 | Outpatient (CLI) | payer OTHER ==
[~2019-12-04] MED LIST changes: +NIFE1TAB36 PO; -NIFE30TA77 PO
[2019-12-04 14:24] LABS: Basophils # (auto) 0 10 ^3/uL (0-0.2); Basophils % (auto) 0.3 % (0.0-2.0); Hemoglobin 11.3 g/dL (13.5-17.5); Monocytes # (auto) 0.4 10 ^3/uL (0-1.3); White Blood Cell 6.3 10^3/uL (4.4-10.8)
[2019-12-04 14:27] LABS: Eosinophils # (auto) 0.1 10 ^3/uL (0-0.8); Hematocrit 36.1 % (41.0-53.0); Lymphocytes # (auto) 2.8 10 ^3/uL (0.4-5.4); Lymphocytes % (auto) 44.3 % (10.0-50.0); Mean Corpuscular Hemoglobin 22.4 pg (28.0-32.0); Mean Corpuscular Hgb Conc. 31.2 g/dL (32.0-36.0); Monocytes % (auto) 6.6 % (0.0-12.0); Neutrophils % (auto) 47.8 % (37.0-80.0); Nucleated Red Blood Cells % 0.2 %; Platelet Count (auto) 192 10^3/uL (140-450); Red Blood Cells 5.02 10^6/uL (4.5-5.90); Red Cell Distribution Width 17.4 % (11.8-14.3)
[2019-12-04 14:49] LABS: Potassium 4.2 mmol/L (3.5-5.1)
[2019-12-04 14:54] LABS: Albumin 4.4 g/dL (3.4-5.0); Bilirubin, Total 0.7 mg/dL (0.2-1.0); Total Protein 8.5 g/dL (6.4-8.2)
== END | disposition home or self-care (01) ==
LOC: LAB 12:42
PROVIDERS: ATTEND Internal Medicine
DX: I10 Essential (primary) hypertension (principal)
CPT/HCPCS: 36415; 80053; 84439; 84443; 85025; 85652

== ENCOUNTER → 2020-01-15 | Outpatient (CLI) | payer MEDICARE, OTHER ==
[~2020-01-15] MED LIST changes: -ASPI-404 PO; +ASPI-543 PO; -LISI40TA PO; +LISI40TA11 PO
[2020-01-15 12:16] LABS: Basophils # (auto) 0 10 ^3/uL (0-0.2); Basophils % (auto) 0.4 % (0.0-2.0); Eosinophils # (auto) 0 10 ^3/uL (0-0.8); Eosinophils % (auto) 0.6 % (0.0-7.0); Monocytes # (auto) 0.4 10 ^3/uL (0-1.3); Platelet Count (auto) 178 10^3/uL (140-450)
[2020-01-15 12:18] LABS: Hematocrit 31.8 % (41.0-53.0); Hemoglobin 10.1 g/dL (13.5-17.5); Lymphocytes # (auto) 2.2 10 ^3/uL (0.4-5.4); Lymphocytes % (auto) 36.5 % (10.0-50.0); Mean Corpuscular Hemoglobin 22.6 pg (28.0-32.0); Mean Corpuscular Hgb Conc. 31.7 g/dL (32.0-36.0); Mean Corpuscular Volume 71.3 fL (80.0-100.0); Monocytes % (auto) 5.9 % (0.0-12.0); Neutrophils # (auto) 3.4 10 ^3/uL (1.6-8.6); Neutrophils % (auto) 56.6 % (37.0-80.0); Nucleated Red Blood Cells % 0.2 %; Red Blood Cells 4.46 10^6/uL (4.5-5.90); White Blood Cell 5.9 10^3/uL (4.4-10.8)
[2020-01-15 12:38] LABS: Alkaline Phosphatase 102 U/L (45-117); Bilirubin, Total 0.9 mg/dL (0.2-1.0); Total Protein 7.5 g/dL (6.4-8.2)
[2020-01-15 13:10] LABS: Chloride 109 mmol/L (98-107); Potassium 3.8 mmol/L (3.5-5.1); Sodium 141 mmol/L (136-145)
[2020-01-15 13:11] LABS: Alanine Aminotransferase 37 U/L (16-61); Albumin 3.9 g/dL (3.4-5.0); Anion Gap 7 (5-15); Aspartate Aminotransferase 32 U/L (15-37); BUN/Creatinine Ratio 9.9; Blood Urea Nitrogen 22 mg/dL (7-18); Calcium 8.8 mg/dL (8.5-10.1); Carbon Dioxide 25 mmol/L (21-32); GFR African American 37 mL/min; GFR Non-African American 30 mL/min; Glucose 125 mg/dL (74-106)
== END | disposition home or self-care (01) ==
LOC: LAB 11:45
PROVIDERS: ATTEND Internal Medicine
DX: I95.9 Hypotension, unspecified (principal)
CPT/HCPCS: 36415; 80053; 84439; 84443; 85025; 85652

== ENCOUNTER → 2020-03-06 | Outpatient (CLI) | payer OTHER | END | disposition home or self-care (01) | LOC: XYW 09:04 | PROVIDERS: ATTEND Internal Medicine | DX: I08.8 Other rheumatic multiple valve diseases (principal); I95.9 Hypotension, unspecified | CPT/HCPCS: 93306 ==

== ENCOUNTER → 2020-09-16 | Outpatient (CLI) | payer OTHER ==
[2020-09-16 15:41] LABS: Albumin 4.1 g/dL (3.4-5.0); Calcium 9.1 mg/dL (8.5-10.1); Potassium 3.8 mmol/L (3.5-5.1)
[2020-09-16 15:45] LABS: BUN/Creatinine Ratio 16.8; Bilirubin, Total 1.3 mg/dL (0.2-1.0); Total Protein 8.1 g/dL (6.4-8.2)
== END | disposition home or self-care (01) ==
LOC: LAB 14:34
PROVIDERS: ATTEND Internal Medicine Cardiovascular Disease
DX: I50.23 Acute on chronic systolic (congestive) heart failure (principal)
CPT/HCPCS: 36415; 80053; 83880

== ENCOUNTER 2020-12-29 01:13 | Emergency (ER) | payer OTHER ==
[2020-12-29 04:10] LABS: Basophils # (auto) 0 10 ^3/uL (0-0.2); Eosinophils # (auto) 0.1 10 ^3/uL (0-0.8); Eosinophils % (auto) 1.5 % (0.0-7.0); Hemoglobin 10.5 g/dL (13.5-17.5); Mean Corpuscular Hemoglobin 23.5 pg (28.0-32.0); Mean Corpuscular Hgb Conc. 32.7 g/dL (32.0-36.0); Red Blood Cells 4.47 10^6/uL (4.5-5.90)
[2020-12-29 04:13] LABS: Basophils % (auto) 0.7 % (0.0-2.0); Hematocrit 32.1 % (41.0-53.0); Lymphocytes # (auto) 2.6 10 ^3/uL (0.4-5.4); Lymphocytes % (auto) 42.6 % (10.0-50.0); Mean Corpuscular Volume 71.8 fL (80.0-100.0); Monocytes # (auto) 0.6 10 ^3/uL (0-1.3); Monocytes % (auto) 9.4 % (0.0-12.0); Neutrophils # (auto) 2.8 10 ^3/uL (1.6-8.6); Neutrophils % (auto) 45.8 % (37.0-80.0); Nucleated Red Blood Cells % 0.3 %; Red Cell Distribution Width 18.4 % (11.8-14.3); White Blood Cell 6.2 10^3/uL (4.4-10.8)
[2020-12-29 04:14] LABS: Albumin 3.6 g/dL (3.4-5.0); BUN/Creatinine Ratio 14.6; Calcium 8.3 mg/dL (8.5-10.1); Potassium 3.9 mmol/L (3.5-5.1)
[2020-12-29] MEDS ORDERED: HYDROcodone-ACET 5/325MG TAB PO ONE (04:15)
[2020-12-29 04:27] LABS: Bilirubin, Total 1.1 mg/dL (0.2-1.0)
[2020-12-29] MEDS ORDERED: LISINOPRIL 20 MG TAB PO ONE (05:30)
[2020-12-29] MEDS ORDERED: ASPirin 325 MG TAB PO ONE (05:30)
[2020-12-29] MEDS ORDERED: NIFEdipine ER 30 MG TAB PO ONE (05:30)
[2020-12-29] MEDS ORDERED: cloNIDine HCL 0.1 MG TAB PO ONE (07:45)
[2020-12-29 08:46] VITALS: BP 144/114
== END 2020-12-29 09:02 | disposition home or self-care (01) ==
LOC: ER 01:13
DX: M19.012 Primary osteoarthritis, left shoulder (principal); I10 Essential (primary) hypertension; I11.0 Hypertensive heart disease with heart failure; I50.9 Heart failure, unspecified; E78.5 Hyperlipidemia, unspecified; F17.210 Nicotine dependence, cigarettes, uncomplicated; I25.2 Old myocardial infarction
CPT/HCPCS: 36415; 71045; 73030; 80053; 83880; 84484; 85025; 93005

== ENCOUNTER → 2021-01-09 | Outpatient (CLI) | payer OTHER ==
[2021-01-09 14:23] LABS: Urine Blood Negative /uL (Negative); Urine Specific Gravity 1.026 (1.001-1.035)
[2021-01-09 14:24] LABS: Basophils # (auto) 0 10 ^3/uL (0-0.2); Eosinophils # (auto) 0.1 10 ^3/uL (0-0.8); Hemoglobin 10.5 g/dL (13.5-17.5); Lymphocytes # (auto) 1.7 10 ^3/uL (0.4-5.4); Mean Corpuscular Hemoglobin 23.5 pg (28.0-32.0); Neutrophils # (auto) 3.3 10 ^3/uL (1.6-8.6); Nucleated Red Blood Cells % 0.2 %
[2021-01-09 14:28] LABS: Basophils % (auto) 0.6 % (0.0-2.0); Eosinophils % (auto) 1.4 % (0.0-7.0); Hematocrit 32.7 % (41.0-53.0); Lymphocytes % (auto) 29.5 % (10.0-50.0); Mean Corpuscular Hgb Conc. 32.2 g/dL (32.0-36.0); Monocytes # (auto) 0.6 10 ^3/uL (0-1.3); Monocytes % (auto) 10.1 % (0.0-12.0); Neutrophils % (auto) 58.4 % (37.0-80.0); Red Blood Cells 4.48 10^6/uL (4.5-5.90); Red Cell Distribution Width 18.7 % (11.8-14.3); White Blood Cell 5.7 10^3/uL (4.4-10.8)
[2021-01-09 14:35] LABS: Potassium 4.5 mmol/L (3.5-5.1)
[2021-01-09 14:43] LABS: Calcium 8.7 mg/dL (8.5-10.1); Free T4 (Free Thyroxine) 1.06 ng/dL (0.89-1.76)
[2021-01-09 14:47] LABS: Thyroid Stimulating Hormone 2.32 uIU/mL (0.358-3.74)
[2021-01-09 14:51] LABS: Prostate Specific Antigen 6.42 ng/mL (0.0-4.0)
[2021-01-09 15:00] LABS: % Iron Saturation 23.8 % (20-55)
== END | disposition home or self-care (01) ==
LOC: LAB 11:35
PROVIDERS: ATTEND Internal Medicine Cardiovascular Disease
DX: C61 Malignant neoplasm of prostate (principal); D51.3 Other dietary vitamin B12 deficiency anemia; I10 Essential (primary) hypertension; E11.9 Type 2 diabetes mellitus without complications; E55.9 Vitamin D deficiency, unspecified; D64.9 Anemia, unspecified; R00.2 Palpitations; R53.1 Weakness; R30.0 Dysuria
CPT/HCPCS: 36415; 80048; 80061; 81003; 82607; 83036; 83540; 83550; 83615; 84153; 84154; 84403; 84439; 84443; 85025

== ENCOUNTER → 2021-01-12 | Outpatient (CLI) | payer OTHER | END | disposition home or self-care (01) | LOC: Rad HDHVI 10:14 | PROVIDERS: ATTEND Internal Medicine Cardiovascular Disease | DX: I67.82 Cerebral ischemia (principal); G31.89 Other specified degenerative diseases of nervous system; J34.89 Other specified disorders of nose and nasal sinuses; R51.9 Headache, unspecified | CPT/HCPCS: 70450 ==